=== PATIENT | female | born 1930 | race African-American/Black ===

== ENCOUNTER 2016-10-16 08:27 | Emergency (ER) | payer MEDICARE, BC ==
[~2016-10-16] VITALS: Ht 167.6 cm; Wt 86.0 kg
[~2016-10-16 08:27] MED LIST: [UNRECOGNIZED DRUG - REMARK]
[2016-10-16] MEDS ORDERED: HYDROCODONE/ACETAMINOPHEN 5/325MG TABLET PO ONE (09:00)
[2016-10-16] MEDS ORDERED: ONDANSETRON 4MG ODT PO ONE (09:00)
[2016-10-16 10:00] LABS: HEMATOCRIT. 39.5 % (36.0-48.0); HEMOGLOBIN. 13.3 g/dL (12.0-16.0); MEAN CORPUSCULAR HEMOGLOBIN 27.8 pg (28.0-32.0); MEAN CORPUSCULAR VOLUME 82.5 fL (81.0-99.0); MEAN PLATELET VOLUME 8.8 fl (7.4-10.4); PLATELET 591 x1000/uL (130-400); RED BLOOD CELL COUNT 4.79 mill/uL (4.2-5.4); RED CELL DISTRIBUTION WIDTH 18.2 % (11.6-14.6)
[2016-10-16 10:11] LABS: INR 1.1; PARTIAL THROMBOPLASTIN TIME 30.3 sec (24.0-34.0); PROTHROMBIN TIME 11.1 sec
[2016-10-16 10:50] LABS: PLATELET ESTIMATE MARKEDLY INCREASED
[2016-10-16 11:47] LABS: CARBON DIOXIDE 29 mEq/L (21-32); CHLORIDE 110 mEq/L (98-107)
[2016-10-16 13:43] VITALS: BP 102/47
== END 2016-10-16 13:54 | disposition home or self-care (01) ==
LOC: ER 08:51
DX: M54.41 Lumbago with sciatica, right side (principal); I10 Essential (primary) hypertension; Z88.0 Allergy status to penicillin; M19.90 Unspecified osteoarthritis, unspecified site
CPT/HCPCS: 36415; 71010; 72148; 80048; 83605; 85025; 85610; 85651; 85730; 86140; 87040; 93005; 99285; Q0162

== ENCOUNTER 2018-04-07 09:35 | Inpatient (IN) | payer MEDICARE, BC ==
[~2018-04-07] VITALS: Ht 167.6 cm; Wt 72.1 kg
[~2018-04-07 09:35] MED LIST changes: +ALPR-393 MT; +FOLI0.8C MT; +GABA-290 MT; +HYDR25TA MT; +METH4TAB PO; +OLME20TA22 MT; -[UNRECOGNIZED DRUG - REMARK]
[2018-04-07 10:48] LABS: MEAN CORPUSCULAR HEMOGLOBIN 29.4 pg (28.0-32.0); MEAN CORPUSCULAR VOLUME 92.2 fL (81.0-99.0); MEAN PLATELET VOLUME 12.1 fl (7.4-10.4); PLATELET 204 x1000/uL (130-400); RED BLOOD CELL COUNT 2.17 mill/uL (4.2-5.4); RED CELL DISTRIBUTION WIDTH 17.7 % (11.6-14.6)
[2018-04-07 10:50] LABS: HEMOGLOBIN. 6.4 g/dL (12.0-16.0)
[2018-04-07 10:53] LABS: CHLORIDE 111 mEq/L (98-107)
[2018-04-07 11:10] LABS: PLATELET ESTIMATE NORMAL
[2018-04-07] MEDS ORDERED: SODIUM CHLORIDE 0.9% 1,000 ML IV ONE (11:22)
[2018-04-07] MEDS ORDERED: VANCOMYCIN 1 G PREMIX 200 ML IV ONE (11:30)
[2018-04-07] MEDS ORDERED: HYDROCODONE/ACETAMINOPHEN 5/325MG TABLET PO ONE (12:15)
[2018-04-07 16:23] LABS: CLARITY URINE CLEAR (CLEAR); COLOR URINE YELLOW (YELLOW); KETONES URINE NEGATIVE (NEGATIVE); LEUKOCYTE ESTERASE URINE NEGATIVE (NEGATIVE); NITRITE URINE NEGATIVE (NEGATIVE); OCCULT BLOOD URINE NEGATIVE (NEGATIVE); PROTEIN URINE NEGATIVE (NEGATIVE); SPECIFIC GRAVITY URINE 1.011 (1.005-1.030); UROBILINOGEN URINE 0.2 E.U./dL (0.2-1.0)
[2018-04-07 20:00] VITALS: BP 129/39
[2018-04-07 21:30] VITALS: BP 129/59
[2018-04-07] MEDS ORDERED: ZOLPIDEM TARTRATE 5MG TABLET PO PRN (22:30)
[2018-04-07] MEDS ORDERED: ACETAMINOPHEN 325MG TABLET PO ONE (22:30)
[2018-04-07] MEDS ORDERED: MAGNESIUM HYDROXIDE 400MG/5ML 30ML UDC PO PRN (22:30)
[2018-04-07] MEDS ORDERED: ALPRAZOLAM 0.25 MG TABLET PO PRN (22:30)
[2018-04-07] MEDS: HYDROCODONE/ACETAMINOPHEN 5/325MG TABLET PO PRN (23:06)
[2018-04-07] MEDS ORDERED: ONDA4TAB5 PO (23:32)
[2018-04-07] MEDS ORDERED: BENI5 PO (23:32)
[2018-04-07] MEDS ORDERED: HYDR12.518 PO (23:32)
[2018-04-07] MEDS ORDERED: AZAC100V IJ (23:32)
[2018-04-07] MEDS ORDERED: RUXO10TA PO (23:32)
[2018-04-08] VITALS (16 sets, daily range): BP systolic 99–134; BP diastolic 32–69
[2018-04-08] MEDS: GABAPENTIN 300MG CAPSULE PO SCH ×3 (06:45→22:19)
[2018-04-08 08:39] LABS: HEMATOCRIT 25.8 % (36.0-48.0); HEMOGLOBIN 8.6 g/dL (12.0-16.0)
[2018-04-08] MEDS: HYDROMORPHONE HCL/PF 2MG/ML CPJ IV PRN (10:58)
[2018-04-08] MEDS: SENNOSIDES/DOCUSATE SOD 8.6/50MG TABLET PO SCH (22:19)
[2018-04-09] VITALS: BP 137/53
[2018-04-09 04:00] VITALS: BP 123/46
[2018-04-09] MEDS: GABAPENTIN 300MG CAPSULE PO SCH ×3 (05:07→21:18)
[2018-04-09] MEDS: ACETAMINOPHEN 325MG TABLET PO PRN (05:10)
[2018-04-09 06:42] LABS: HEMATOCRIT 26.5 % (36.0-48.0)
[2018-04-09 08:00] VITALS: BP 128/53
[2018-04-09] MEDS: HYDROMORPHONE HCL/PF 2MG/ML CPJ IV PRN ×2 (10:11→19:42)
[2018-04-09 12:00] VITALS: BP 120/43
[2018-04-09 16:00] VITALS: BP 128/58
[2018-04-09 20:00] VITALS: BP 137/41
[2018-04-09] MEDS: SENNOSIDES/DOCUSATE SOD 8.6/50MG TABLET PO SCH (20:57)
[2018-04-10] VITALS: BP 135/50
[2018-04-10 04:00] VITALS: BP 111/57
[2018-04-10] MEDS: GABAPENTIN 300MG CAPSULE PO SCH ×3 (06:01→21:18)
[2018-04-10 08:00] VITALS: BP 131/49
[2018-04-10 12:00] VITALS: BP 139/56
[2018-04-10] MEDS ORDERED: BISACODYL 10MG SUPP PR PRN (15:00)
[2018-04-10] MEDS ORDERED: NA PHOS,M-B/NA PHOS,DI-BA ENEMA 118ML PR PRN (15:00)
[2018-04-10] MEDS ORDERED: MAGNESIUM CITRATE 300ML SOLUTION PO PRN (15:00)
[2018-04-10 16:00] VITALS: BP 134/47
[2018-04-10 20:00] VITALS: BP 130/66
[2018-04-10] MEDS: HYDROMORPHONE HCL/PF 2MG/ML CPJ IV PRN (20:30)
[2018-04-10] MEDS: SENNOSIDES/DOCUSATE SOD 8.6/50MG TABLET PO SCH (21:18)
[2018-04-11] VITALS: BP 132/58
[2018-04-11 04:00] VITALS: BP 132/51
[2018-04-11] MEDS: GABAPENTIN 300MG CAPSULE PO SCH ×3 (06:20→21:06)
[2018-04-11 07:15] LABS: HEMATOCRIT. 27.3 % (36.0-48.0); HEMOGLOBIN. 9.2 g/dL (12.0-16.0); MEAN CORPUSCULAR HEMOGLOBIN 29.6 pg (28.0-32.0); MEAN CORPUSCULAR VOLUME 88.2 fL (81.0-99.0); RED CELL DISTRIBUTION WIDTH 16.6 % (11.6-14.6)
[2018-04-11 07:16] LABS: CHLORIDE 113 mEq/L (98-107)
[2018-04-11 07:31] LABS: PHOSPHORUS 3.3 mg/dL (2.5-4.9)
[2018-04-11 08:00] VITALS: BP 125/54
[2018-04-11 08:37] LABS: PLATELET ESTIMATE NORMAL
[2018-04-11 08:38] LABS: MEAN PLATELET VOLUME 11.8 fl (7.4-10.4); PLATELET 140 x1000/uL (130-400)
[2018-04-11 12:00] VITALS: BP 134/89
[2018-04-11 16:00] VITALS: BP 129/46
[2018-04-11] MEDS: ALLOPURINOL 100 MG TABLET PO SCH (17:31)
[2018-04-11 20:00] VITALS: BP 132/48
[2018-04-11] MEDS: SENNOSIDES/DOCUSATE SOD 8.6/50MG TABLET PO SCH (20:02)
[2018-04-11] MEDS: HYDROCODONE/ACETAMINOPHEN 5/325MG TABLET PO PRN (20:03)
[2018-04-12] VITALS: BP 128/43
[2018-04-12 04:00] VITALS: BP 134/55
[2018-04-12 04:02] LABS: CLARITY URINE CLEAR (CLEAR); COLOR URINE YELLOW (YELLOW); KETONES URINE NEGATIVE (NEGATIVE); LEUKOCYTE ESTERASE URINE TRACE (NEGATIVE); NITRITE URINE NEGATIVE (NEGATIVE); OCCULT BLOOD URINE NEGATIVE (NEGATIVE); PROTEIN URINE 1+ (NEGATIVE); SPECIFIC GRAVITY URINE 1.012 (1.005-1.030); UROBILINOGEN URINE 0.2 E.U./dL (0.2-1.0)
[2018-04-12] MEDS: GABAPENTIN 300MG CAPSULE PO SCH ×3 (05:05→21:22)
[2018-04-12 08:00] VITALS: BP 121/53
[2018-04-12] MEDS: COLCHICINE 0.6MG TABLET PO SCH (08:48)
[2018-04-12] MEDS: CYANOCOBALAMIN 1000MCG TABLET PO SCH (08:49)
[2018-04-12] MEDS: ALLOPURINOL 100 MG TABLET PO SCH ×2 (08:49→18:30)
[2018-04-12] MEDS: FOLIC ACID 1MG TABLET PO SCH (08:49)
[2018-04-12] MEDS: HYDROCODONE/ACETAMINOPHEN 5/325MG TABLET PO PRN (09:54)
[2018-04-12 12:00] VITALS: BP 106/47
[2018-04-12 16:00] VITALS: BP 118/43
[2018-04-12 20:00] VITALS: BP 111/57
[2018-04-12] MEDS: SENNOSIDES/DOCUSATE SOD 8.6/50MG TABLET PO SCH (21:22)
[2018-04-13] VITALS: BP 115/48
[2018-04-13 04:00] VITALS: BP 118/50
[2018-04-13] MEDS: GABAPENTIN 300MG CAPSULE PO SCH ×3 (05:59→21:31)
[2018-04-13 08:00] VITALS: BP 123/52
[2018-04-13] MEDS: FOLIC ACID 1MG TABLET PO SCH (08:19)
[2018-04-13] MEDS: CYANOCOBALAMIN 1000MCG TABLET PO SCH (08:19)
[2018-04-13] MEDS: COLCHICINE 0.6MG TABLET PO SCH (08:19)
[2018-04-13] MEDS: ALLOPURINOL 100 MG TABLET PO SCH ×2 (08:19→17:51)
[2018-04-13 12:13] VITALS: BP 138/64
[2018-04-13 16:00] VITALS: BP 140/48
[2018-04-13] MEDS ORDERED: ALPRAZOLAM 0.25 MG TABLET PO PRN (16:15)
[2018-04-13] MEDS: ALPRAZOLAM 0.25 MG TABLET PO PRN (17:51)
[2018-04-13 20:00] VITALS: BP 138/44
[2018-04-13] MEDS: SENNOSIDES/DOCUSATE SOD 8.6/50MG TABLET PO SCH (21:31)
[2018-04-14] VITALS: BP 115/48
[2018-04-14 04:00] VITALS: BP 117/52
[2018-04-14] MEDS: GABAPENTIN 300MG CAPSULE PO SCH ×3 (06:31→21:18)
[2018-04-14] MEDS: CYANOCOBALAMIN 1000MCG TABLET PO SCH (06:31)
[2018-04-14 07:22] LABS: HEMATOCRIT. 29.4 % (36.0-48.0); HEMOGLOBIN. 9.8 g/dL (12.0-16.0); MEAN CORPUSCULAR HEMOGLOBIN 29.9 pg (28.0-32.0); MEAN CORPUSCULAR VOLUME 89.9 fL (81.0-99.0); RED BLOOD CELL COUNT 3.27 mill/uL (4.2-5.4); RED CELL DISTRIBUTION WIDTH 16.2 % (11.6-14.6)
[2018-04-14 07:40] LABS: CHLORIDE 109 mEq/L (98-107)
[2018-04-14 07:50] LABS: PHOSPHORUS 3.5 mg/dL (2.5-4.9)
[2018-04-14 08:00] VITALS: BP 122/50
[2018-04-14] MEDS: FOLIC ACID 1MG TABLET PO SCH (08:14)
[2018-04-14] MEDS: ALLOPURINOL 100 MG TABLET PO SCH ×2 (08:14→17:08)
[2018-04-14] MEDS: COLCHICINE 0.6MG TABLET PO SCH (08:15)
[2018-04-14 09:32] LABS: PLATELET 120 x1000/uL (130-400)
[2018-04-14 09:37] LABS: NUCLEATED RED BLOOD CELLS 1 /100 WBC
[2018-04-14 09:38] LABS: PLATELET ESTIMATE SLIGHTLY DECREASED
[2018-04-14 12:00] VITALS: BP 127/49
[2018-04-14 16:00] VITALS: BP 126/41
[2018-04-14] MEDS: ACETAMINOPHEN 325MG TABLET PO PRN (19:17)
[2018-04-14 20:00] VITALS: BP 138/54
[2018-04-14] MEDS: SENNOSIDES/DOCUSATE SOD 8.6/50MG TABLET PO SCH (21:00)
[2018-04-15] VITALS: BP 122/42
[2018-04-15 04:00] VITALS: BP 113/49
[2018-04-15] MEDS: GABAPENTIN 300MG CAPSULE PO SCH (06:35)
[2018-04-15] MEDS: CYANOCOBALAMIN 1000MCG TABLET PO SCH (06:35)
[2018-04-15 08:18] VITALS: BP 135/55
[2018-04-15] MEDS: ALLOPURINOL 100 MG TABLET PO SCH (08:50)
[2018-04-15] MEDS: FOLIC ACID 1MG TABLET PO SCH (08:50)
[2018-04-15] MEDS: COLCHICINE 0.6MG TABLET PO SCH (08:50)
[2018-04-15] MEDS: ALPRAZOLAM 0.25 MG TABLET PO PRN (10:01)
[2018-04-15 10:11] VITALS: BP 135/55
[2018-04-19 04:10] LABS: 25-HYDROXY VITAMIN D3 6.8 ng/mL (.)
== END 2018-04-15 10:50 | disposition home or self-care (01) | DRG 811 ==
LOC: ER 09:35 → EDBEDREQ 11:09 → 8WST 11:33 → EDBEDREQTM 11:35 → EDBEDREQSVC 11:35 → EDBEDREQ 11:35 → ENRESERV 19:36 → 5WST 04-10 05:23
PROVIDERS: ADMIT Specialist; ATTEND Specialist
PROC: 30233N1 Transfusion of Nonautologous Red Blood Cells into Peripheral Vein, Percutaneous Approach (ICD-10-PCS; principal; 2018-04-07)
DX: D46.9 Myelodysplastic syndrome, unspecified (principal); L89.154 Pressure ulcer of sacral region, stage 4; F32.9 Major depressive disorder, single episode, unspecified; I10 Essential (primary) hypertension; D63.0 Anemia in neoplastic disease; M19.90 Unspecified osteoarthritis, unspecified site; M54.30 Sciatica, unspecified side; F41.1 Generalized anxiety disorder; K59.00 Constipation, unspecified; Z83.3 Family history of diabetes mellitus; Z74.01 Bed confinement status; Z87.441 Personal history of nephrotic syndrome; Z87.448 Personal history of other diseases of urinary system; Z98.41 Cataract extraction status, right eye; Z98.42 Cataract extraction status, left eye; Z88.0 Allergy status to penicillin; Z88.6 Allergy status to analgesic agent; Z79.899 Other long term (current) drug therapy; Z92.21 Personal history of antineoplastic chemotherapy
CPT/HCPCS: 36415; 71045; 74018; 80069; 80076; 82306; 82962; 83036; 83735; 84100; 84550; 85014; 85018; 85651; 86850; 86870; 86900; 86920; 96365; 97110; 97116; 97162; 97530; 99291; A6261; C1893; J1170; J3370; J7030; J7040; J7050; P9016

== ENCOUNTER 2018-04-19 20:54 | Inpatient (IN) | payer MEDICARE, BC ==
[~2018-04-19] VITALS: Ht 170.2 cm; Wt 73.5 kg
[~2018-04-19 20:54] MED LIST changes: +AZAC100V IJ; +BENI5 PO; +HYDR12.518 PO; +ONDA4TAB5 PO; +RUXO10TA PO
[2018-04-20 00:45] LABS: HEMATOCRIT. 27.4 % (36.0-48.0); HEMOGLOBIN. 8.8 g/dL (12.0-16.0); MEAN CORPUSCULAR HEMOGLOBIN 28.8 pg (28.0-32.0); MEAN CORPUSCULAR VOLUME 89.3 fL (81.0-99.0); RED BLOOD CELL COUNT 3.06 mill/uL (4.2-5.4); RED CELL DISTRIBUTION WIDTH 16.6 % (11.6-14.6)
[2018-04-20 00:48] LABS: CHLORIDE 108 mEq/L (98-107)
[2018-04-20 00:52] LABS: CLARITY URINE CLEAR (CLEAR); COLOR URINE YELLOW (YELLOW); KETONES URINE NEGATIVE (NEGATIVE); LEUKOCYTE ESTERASE URINE NEGATIVE (NEGATIVE); NITRITE URINE NEGATIVE (NEGATIVE); OCCULT BLOOD URINE NEGATIVE (NEGATIVE); PROTEIN URINE 1+ (NEGATIVE); SPECIFIC GRAVITY URINE 1.012 (1.005-1.030); UROBILINOGEN URINE 0.2 E.U./dL (0.2-1.0)
[2018-04-20 00:53] LABS: INR 1.3; PROTHROMBIN TIME 12.9 sec (9.1-11.1)
[2018-04-20] MEDS ORDERED: INSULIN REGULAR (HUMULIN R) 300UNITS/3ML IV ONE (01:30)
[2018-04-20] MEDS ORDERED: DEXTROSE 50% WATER 50ML SYRINGE IV ONE (01:30)
[2018-04-20] MEDS ORDERED: SODIUM CHLORIDE 0.9% 1,000 ML IV ONE ×2 (01:30)
[2018-04-20] MEDS ORDERED: SODIUM POLYSTYRENE SULFONATE 15 G/60 ML BOT PO ONE (01:30)
[2018-04-20] MEDS ORDERED: ALBUTEROL (0.083%) 2.5MG/3ML NEB HHN SCH (01:30)
[2018-04-20 02:13] LABS: MEAN PLATELET VOLUME 13.5 fl (7.4-10.4)
[2018-04-20] MEDS ORDERED: LEVOFLOXACIN 750MG PREMIX 150 ML IV ONE (09:00)
[2018-04-20 10:01] LABS: PLATELET ESTIMATE NORMAL
[2018-04-20 10:02] LABS: PLATELET 206 x1000/uL (130-400)
[2018-04-20] MEDS ORDERED: ACETAMINOPHEN 325MG TABLET PO PRN (10:30)
[2018-04-20] MEDS ORDERED: IPRATROPIUM/ALBUTEROL 0.5-3(2.5)MG/3ML NEB HHN PRN (10:30)
[2018-04-20 10:49] VITALS: BP 119/52
[2018-04-20 12:00] VITALS: BP 120/58
[2018-04-20 12:25] LABS: HEMATOCRIT 24.5 % (36.0-48.0); HEMOGLOBIN 7.9 g/dL (12.0-16.0); MEAN CORPUSCULAR HEMOGLOBIN 28.6 pg (28.0-32.0); MEAN CORPUSCULAR VOLUME 89.4 fL (81.0-99.0); RED BLOOD CELL COUNT 2.75 mill/uL (4.2-5.4); RED CELL DISTRIBUTION WIDTH 16.4 % (11.6-14.6)
[2018-04-20] MEDS ORDERED: MAGNESIUM CITRATE 300ML SOLUTION PO NR (12:30)
[2018-04-20 13:20] LABS: PLATELET 204 x1000/uL (130-400)
[2018-04-20] MEDS ORDERED: ALPRAZOLAM 0.5 MG TABLET PO PRN (15:15)
[2018-04-20 16:00] VITALS: BP 127/45
[2018-04-20] MEDS: GABAPENTIN 300MG CAPSULE PO SCH (16:21)
[2018-04-20] MEDS: SENNOSIDES/DOCUSATE SOD 8.6/50MG TABLET PO SCH (16:22)
[2018-04-20] MEDS ORDERED: RUXOLITINIB PHOSPHATE PO SCH (17:00)
[2018-04-20 20:00] VITALS: BP 130/54
[2018-04-21] VITALS: BP 128/60
[2018-04-21 04:10] VITALS: BP 121/66
[2018-04-21 08:00] VITALS: BP 122/50
[2018-04-21] MEDS ORDERED: INFLUENZA VIRUS VACCINE(AFLURIA) 0.5ML SYR IM ONE (09:00)
[2018-04-21] MEDS: METHYLPREDNISOLONE 4MG TABLET PO SCH (09:56)
[2018-04-21] MEDS: LOSARTAN POTASSIUM 100 MG TABLET PO SCH (09:56)
[2018-04-21] MEDS: FOLIC ACID 1MG TABLET PO SCH (09:56)
[2018-04-21] MEDS: SENNOSIDES/DOCUSATE SOD 8.6/50MG TABLET PO SCH ×2 (09:56→17:32)
[2018-04-21] MEDS: GABAPENTIN 300MG CAPSULE PO SCH ×3 (09:56→17:32)
[2018-04-21 10:22] LABS: HEMATOCRIT. 24.6 % (36.0-48.0); HEMOGLOBIN. 7.8 g/dL (12.0-16.0); MEAN CORPUSCULAR HEMOGLOBIN 28.5 pg (28.0-32.0); MEAN CORPUSCULAR VOLUME 89.5 fL (81.0-99.0); RED BLOOD CELL COUNT 2.75 mill/uL (4.2-5.4); RED CELL DISTRIBUTION WIDTH 16.2 % (11.6-14.6)
[2018-04-21 11:51] LABS: CHLORIDE 112 mEq/L (98-107)
[2018-04-21 11:56] LABS: PHOSPHORUS 3.6 mg/dL (2.5-4.9)
[2018-04-21 12:00] VITALS: BP 121/61
[2018-04-21 14:16] LABS: PLATELET ESTIMATE NORMAL
[2018-04-21 14:17] LABS: PLATELET 193 x1000/uL (130-400)
[2018-04-21 16:00] VITALS: BP 120/55
[2018-04-21] MEDS ORDERED: LEVOFLOXACIN 500MG PREMIX 100 ML IV NR (16:00)
[2018-04-21] MEDS ORDERED: LIDOCAINE 5% PATCH TOP SCH (16:30)
[2018-04-21] MEDS: CITRIC ACID/SODIUM CITRATE SOLN 15ML UDC PO SCH (17:31)
[2018-04-21 20:00] VITALS: BP 110/40
[2018-04-21] MEDS: LIDOCAINE 5% PATCH TOP SCH (21:41)
[2018-04-21] MEDS: ALLOPURINOL 300 MG TABLET PO SCH (22:07)
[2018-04-22] VITALS: BP 118/42
[2018-04-22 04:00] VITALS: BP 116/42
[2018-04-22 06:33] LABS: HEMATOCRIT. 21.6 % (36.0-48.0); HEMOGLOBIN. 7.1 g/dL (12.0-16.0); MEAN CORPUSCULAR HEMOGLOBIN 29.2 pg (28.0-32.0); MEAN CORPUSCULAR VOLUME 88.6 fL (81.0-99.0); MEAN PLATELET VOLUME 11.9 fl (7.4-10.4); PLATELET 161 x1000/uL (130-400); RED BLOOD CELL COUNT 2.43 mill/uL (4.2-5.4); RED CELL DISTRIBUTION WIDTH 16.3 % (11.6-14.6)
[2018-04-22 07:08] LABS: CHLORIDE 113 mEq/L (98-107)
[2018-04-22 08:00] VITALS: BP 103/66
[2018-04-22] MEDS: LOSARTAN POTASSIUM 100 MG TABLET PO SCH (09:00)
[2018-04-22] MEDS: CITRIC ACID/SODIUM CITRATE SOLN 15ML UDC PO SCH ×3 (09:25→16:08)
[2018-04-22] MEDS: FOLIC ACID 1MG TABLET PO SCH (09:25)
[2018-04-22] MEDS: GABAPENTIN 300MG CAPSULE PO SCH ×3 (09:25→16:07)
[2018-04-22] MEDS: ALLOPURINOL 300 MG TABLET PO SCH ×2 (09:26→16:07)
[2018-04-22] MEDS: SENNOSIDES/DOCUSATE SOD 8.6/50MG TABLET PO SCH ×2 (09:26→16:08)
[2018-04-22] MEDS: METHYLPREDNISOLONE 4MG TABLET PO SCH (09:27)
[2018-04-22 12:00] VITALS: BP_SYST 112; BP_SYST 115; BP_DIAS 64; BP_DIAS 67
[2018-04-22 12:31] LABS: PLATELET ESTIMATE NORMAL
[2018-04-22 16:00] VITALS: BP 112/69
[2018-04-22] MEDS: LEVOFLOXACIN 250MG PREMIX 50 ML IV SCH (16:07)
[2018-04-22 20:00] VITALS: BP 125/51
[2018-04-22] MEDS ORDERED: MAGNESIUM CITRATE 300ML SOLUTION PO PRN (20:30)
[2018-04-22] MEDS: LIDOCAINE 5% PATCH TOP SCH ×2 (21:00→21:38)
[2018-04-23] VITALS: BP 130/60
[2018-04-23 04:00] VITALS: BP 124/52
[2018-04-23 06:37] LABS: HEMATOCRIT. 24.1 % (36.0-48.0); MEAN CORPUSCULAR HEMOGLOBIN 29.1 pg (28.0-32.0); MEAN CORPUSCULAR VOLUME 88.3 fL (81.0-99.0); MEAN PLATELET VOLUME 12.7 fl (7.4-10.4); PLATELET 160 x1000/uL (130-400); RED BLOOD CELL COUNT 2.73 mill/uL (4.2-5.4); RED CELL DISTRIBUTION WIDTH 16.2 % (11.6-14.6)
[2018-04-23 08:00] VITALS: BP 123/37
[2018-04-23] MEDS: ALLOPURINOL 300 MG TABLET PO SCH ×3 (09:09→18:25)
[2018-04-23] MEDS: CITRIC ACID/SODIUM CITRATE SOLN 15ML UDC PO SCH ×4 (09:09→18:25)
[2018-04-23] MEDS: METHYLPREDNISOLONE 4MG TABLET PO SCH (09:10)
[2018-04-23] MEDS: SENNOSIDES/DOCUSATE SOD 8.6/50MG TABLET PO SCH ×3 (09:10→18:25)
[2018-04-23] MEDS: FOLIC ACID 1MG TABLET PO SCH (09:10)
[2018-04-23] MEDS: GABAPENTIN 300MG CAPSULE PO SCH ×4 (09:10→18:25)
[2018-04-23] MEDS: LOSARTAN POTASSIUM 100 MG TABLET PO SCH (09:10)
[2018-04-23 12:00] VITALS: BP 107/35
[2018-04-23] MEDS: DEXT 5%/0.45% NACL 1000ML 1,000 ML IV SCH ×2 (12:51→22:19)
[2018-04-23 13:24] LABS: NUCLEATED RED BLOOD CELLS 1 /100 WBC
[2018-04-23 13:25] LABS: PLATELET ESTIMATE NORMAL
[2018-04-23 16:00] VITALS: BP 113/42
[2018-04-23] MEDS: LEVOFLOXACIN 250MG PREMIX 50 ML IV SCH (18:06)
[2018-04-23 20:00] VITALS: BP 130/70
[2018-04-23] MEDS: LIDOCAINE 5% PATCH TOP SCH (21:00)
[2018-04-24] VITALS (8 sets, daily range): BP systolic 118–139; BP diastolic 45–63
[2018-04-24 06:49] LABS: CHLORIDE 114 mEq/L (98-107)
[2018-04-24 06:50] LABS: HEMATOCRIT. 21.7 % (36.0-48.0); HEMOGLOBIN. 7.3 g/dL (12.0-16.0); MEAN CORPUSCULAR HEMOGLOBIN 29.6 pg (28.0-32.0); MEAN CORPUSCULAR VOLUME 88.2 fL (81.0-99.0); MEAN PLATELET VOLUME 12.4 fl (7.4-10.4); PLATELET 134 x1000/uL (130-400); RED BLOOD CELL COUNT 2.46 mill/uL (4.2-5.4); RED CELL DISTRIBUTION WIDTH 15.9 % (11.6-14.6)
[2018-04-24] MEDS: LOSARTAN POTASSIUM 100 MG TABLET PO SCH (08:57)
[2018-04-24] MEDS: METHYLPREDNISOLONE 4MG TABLET PO SCH (08:57)
[2018-04-24] MEDS: FOLIC ACID 1MG TABLET PO SCH (08:57)
[2018-04-24] MEDS ORDERED: ALPRAZOLAM 0.5 MG TABLET PO PRN (10:45)
[2018-04-24] MEDS: GABAPENTIN 300MG CAPSULE PO SCH ×2 (12:36→18:16)
[2018-04-24] MEDS: SENNOSIDES/DOCUSATE SOD 8.6/50MG TABLET PO SCH (18:13)
[2018-04-24] MEDS: DEXT 5%/0.45% NACL 1000ML 1,000 ML IV SCH (18:13)
[2018-04-24] MEDS: ALLOPURINOL 300 MG TABLET PO SCH (18:15)
[2018-04-24] MEDS ORDERED: DIPHENHYDRAMINE 25MG CAPSULE PO ONE (22:00)
[2018-04-25] VITALS (13 sets, daily range): BP systolic 121–145; BP diastolic 44–59
[2018-04-25] MEDS: DEXT 5%/0.45% NACL 1000ML 1,000 ML IV SCH ×2 (01:30→20:49)
[2018-04-25 08:45] LABS: HEMATOCRIT. 24.4 % (36.0-48.0); HEMOGLOBIN. 8.2 g/dL (12.0-16.0); MEAN CORPUSCULAR HEMOGLOBIN 28.9 pg (28.0-32.0); MEAN CORPUSCULAR VOLUME 86.2 fL (81.0-99.0); MEAN PLATELET VOLUME 11.3 fl (7.4-10.4); PLATELET 108 x1000/uL (130-400); RED BLOOD CELL COUNT 2.83 mill/uL (4.2-5.4)
[2018-04-25 08:51] LABS: INR 1.2; PROTHROMBIN TIME 12.3 sec (9.1-11.1)
[2018-04-25 08:56] LABS: CHLORIDE 113 mEq/L (98-107)
[2018-04-25] MEDS: LOSARTAN POTASSIUM 100 MG TABLET PO SCH (08:56)
[2018-04-25] MEDS: FOLIC ACID 1MG TABLET PO SCH (08:56)
[2018-04-25] MEDS: ALLOPURINOL 300 MG TABLET PO SCH ×2 (08:56→17:54)
[2018-04-25] MEDS: GABAPENTIN 300MG CAPSULE PO SCH ×3 (08:56→17:53)
[2018-04-25] MEDS: METHYLPREDNISOLONE 4MG TABLET PO SCH (08:56)
[2018-04-25] MEDS: SENNOSIDES/DOCUSATE SOD 8.6/50MG TABLET PO SCH ×2 (08:56→17:54)
[2018-04-25 14:58] LABS: PLATELET ESTIMATE NORMAL
[2018-04-25 22:06] LABS: HEMATOCRIT 27.4 % (36.0-48.0); HEMOGLOBIN 9.3 g/dL (12.0-16.0); MEAN CORPUSCULAR HEMOGLOBIN 28.7 pg (28.0-32.0); MEAN CORPUSCULAR VOLUME 85.1 fL (81.0-99.0); PLATELET 104 x1000/uL (130-400); RED BLOOD CELL COUNT 3.22 mill/uL (4.2-5.4); RED CELL DISTRIBUTION WIDTH 16.4 % (11.6-14.6)
[2018-04-26] VITALS: BP 102/57
[2018-04-26 04:00] VITALS: BP 120/55
[2018-04-26] MEDS: DEXT 5%/0.45% NACL 1000ML 1,000 ML IV SCH (06:21)
[2018-04-26 08:30] VITALS: BP 151/53
[2018-04-26] MEDS: FOLIC ACID 1MG TABLET PO SCH (09:26)
[2018-04-26] MEDS: ALLOPURINOL 300 MG TABLET PO SCH (09:26)
[2018-04-26] MEDS: SENNOSIDES/DOCUSATE SOD 8.6/50MG TABLET PO SCH (09:26)
[2018-04-26] MEDS: LOSARTAN POTASSIUM 100 MG TABLET PO SCH (09:27)
[2018-04-26] MEDS: GABAPENTIN 300MG CAPSULE PO SCH (09:27)
[2018-04-26] MEDS: METHYLPREDNISOLONE 4MG TABLET PO SCH (09:27)
[2018-04-26 10:43] VITALS: BP 151/53
[2018-04-26 10:50] LABS: PLATELET ESTIMATE SLIGHTLY DECREASED
== END 2018-04-26 11:49 | disposition home or self-care (01) | DRG 834 ==
LOC: ER 20:54 → EDBEDREQ 04-20 04:34 → EDBEDREQDT 04-20 04:34 → EDBEDREQTM 04-20 04:34 → ENRESERV 04-20 07:02 → 8WST 04-20 08:58
PROVIDERS: ADMIT Internal Medicine; ATTEND Internal Medicine
PROC: 30233N1 Transfusion of Nonautologous Red Blood Cells into Peripheral Vein, Percutaneous Approach (ICD-10-PCS; principal; 2018-04-24)
PROC: 0KBP0ZZ Excision of Left Hip Muscle, Open Approach (ICD-10-PCS; 2018-04-24)
PROC: 0KBN0ZZ Excision of Right Hip Muscle, Open Approach (ICD-10-PCS; 2018-04-24)
DX: C92.00 Acute myeloblastic leukemia, not having achieved remission (principal); L89.154 Pressure ulcer of sacral region, stage 4; E88.3 Tumor lysis syndrome; E87.2 Acidosis; N17.9 Acute kidney failure, unspecified; N39.0 Urinary tract infection, site not specified; D46.9 Myelodysplastic syndrome, unspecified; D75.81 Myelofibrosis; E87.5 Hyperkalemia; I10 Essential (primary) hypertension; E86.0 Dehydration; F41.1 Generalized anxiety disorder; G89.29 Other chronic pain; K59.00 Constipation, unspecified; L89.159 Pressure ulcer of sacral region, unspecified stage; M13.0 Polyarthritis, unspecified; Z88.0 Allergy status to penicillin; Z88.8 Allergy status to other drugs, medicaments and biological substances
CPT/HCPCS: 36415; 71045; 80048; 82962; 83605; 83735; 84100; 84134; 84484; 84550; 85027; 85384; 86850; 86870; 86900; 86920; 90686; 93005; 99285; C1893; J1815; J1956; J3490; J7030; J7040; J7050; J7509; P9016; Q0163